=== PATIENT | female | born 1980 | race Caucasian/White ===

== ENCOUNTER → 2017-02-03 | Day surgery (SDC) | payer BC ==
[~2017-02-03] MED LIST: DIPHENHYDRAMINE 50 MG/ML VIAL. IV ONE; DIPHENHYDRAMINE 50 MG/ML VIAL. ONE; FENTANYL PF 100 MCG/2 ML VIAL. IV PRN; IV RINGERS,LACTATED 1000ML 1,000 ML IV ONE; IV RINGERS,LACTATED 1000ML 1,000 ML IV SCH; LIDOCAINE 1% 1 ML SYRINGE. ID PRN; MEPERIDINE PF 25 MG/ML VIAL. IV ONE; MEPERIDINE PF 25 MG/ML VIAL. ONE; MIDAZOLAM HCL/PF 5 MG/5 ML VIAL. IV ONE; MIDAZOLAM HCL/PF 5 MG/5 ML VIAL. ONE; ONDANSETRON PF 4 MG/2 ML VIAL. IV PRN; PROCHLORPERAZINE 10 MG/2 ML VIAL. IV PRN
[2017-02-03 15:38] LABS: NEG OBC UR NEG; POS OBC UR POS
[2017-02-03 17:06] VITALS: BP 128/66
--- NOTE | 2017-02-05 10:41 | PATHOLOGY ---
PATHOLOGY REPORT * * * * * * * * FINAL DIAGNOSIS: A. Small bowel, duodenum, biopsy: - Duodenal mucosa with mild to moderate chronic inflammation. - Normal villous architecture. B. Colon, random biopsies: - Colonic mucosa with mild to moderate chronic inflammation and focal mild hyperplastic changes. - No evidence of acute or chronic colitis. (SKM:julissa; d/t: 02/05/2017) REPORT ELECTRONICALLY SIGNED BY: Mio Oshea M.D. DATE/TIME: 02/05/2017 10:40 * * * * * * * * GROSS PATHOLOGY: A. Received in formalin labeled "Aspen Smith, duodenal biopsy," are nine segments of castano soft tissue measuring 1.1 x 1.0 x 0.3 cm in aggregate dimensions and ranging from 0.2 to 0.5 cm in maximum dimension. The specimen is submitted entirely in cassette A1. B. Received in formalin labeled "Aspen Smith, random colon," are multiple (greater than 10) segments of castano soft tissue measuring 1.7 x 1.1 x 0.1 cm in aggregate dimensions and ranging from 0.2 to 1.0 cm in maximum dimension. The specimen is submitted entirely in cassette B1. ([facility]AA; 02/04/2017) INITIAL CPT CODE(S): A; 62177 B; 36042 Professional services performed [place] [facility] [address] Technical services performed by [facility] at [address] [place] [address] [address] [address]. SPECIMEN(S) RECEIVED: A.Duodenal biopsy B.Random colon CLINICAL HISTORY: Abdominal pain PATIENT: ASPEN SMITH /AGE: 401/27/1980 (Age: 37) PATIENT #: [id number] ALT CASE #: SPECIMEN COLLECTION DATE: 02/03/2017 SPECIMEN RECEIVED DATE: 02/04/2017 [facility] - [address] [place] [address] - PHONE: [phone] * * * END OF REPORT * * *
== END | disposition home or self-care (01) ==
LOC: ENDOS 14:58
PROVIDERS: ATTEND Internal Medicine Gastroenterology
DX: K64.0 First degree hemorrhoids (principal); K52.9 Noninfective gastroenteritis and colitis, unspecified; K31.9 Disease of stomach and duodenum, unspecified; K21.9 Gastro-esophageal reflux disease without esophagitis; J45.909 Unspecified asthma, uncomplicated; I10 Essential (primary) hypertension; E11.9 Type 2 diabetes mellitus without complications
CPT/HCPCS: 43239; 45380; 81025; J1200; J2175; J2250

== ENCOUNTER 2018-03-18 09:01 | Day surgery (SDC) | payer BC ==
[~2018-03-18 09:01] MED LIST changes: +DEXAMETHASONE SOD PHOS 20 MG/5 ML VIAL.; -DIPHENHYDRAMINE 50 MG/ML VIAL. IV ONE; -DIPHENHYDRAMINE 50 MG/ML VIAL. ONE; -FENTANYL PF 100 MCG/2 ML VIAL. IV PRN; -IV RINGERS,LACTATED 1000ML 1,000 ML IV ONE; -IV RINGERS,LACTATED 1000ML 1,000 ML IV SCH; -LIDOCAINE 1% 1 ML SYRINGE. ID PRN; +LIDOCAINE 1% PF 2 ML VIAL. ID; -MEPERIDINE PF 25 MG/ML VIAL. IV ONE; -MEPERIDINE PF 25 MG/ML VIAL. ONE; +MIDAZOLAM HCL/PF 2 MG/2 ML VIAL.; -MIDAZOLAM HCL/PF 5 MG/5 ML VIAL. IV ONE; -MIDAZOLAM HCL/PF 5 MG/5 ML VIAL. ONE; -ONDANSETRON PF 4 MG/2 ML VIAL. IV PRN; -PROCHLORPERAZINE 10 MG/2 ML VIAL. IV PRN; +PROPOFOL 20 ML IV; +fentaNYL PF VIAL 100 MCG/2 ML VIAL; +fentaNYL PF VIAL 100 MCG/2 ML VIAL IV
[2018-03-18] MEDS: IV RINGERS,LACTATED 1000ML 1,000 ML IV (09:54)
[2018-03-18] MEDS ORDERED: ceFAZolin 2GM PREMIX 2 GM/50 ML BAG IV (10:00)
[2018-03-18 10:17] LABS: NEG OBC UR NEG; POS OBC UR POS; U PREG PATIENT NEGATIVE (NEG)
[2018-03-18] MEDS ORDERED: ONDANSETRON PF 4 MG/2 ML VIAL. (10:33)
[2018-03-18] MEDS: BUPIVACAINE-EPI 0.25%-1:200000 50 ML VIAL. (10:47)
[2018-03-18] MEDS: BACITRACIN TOPICAL OINT 14GM TUBE. TP (10:47)
[2018-03-18] MEDS: fentaNYL PF VIAL 100 MCG/2 ML VIAL IV ×2 (11:13→13:13)
[2018-03-18] MEDS ORDERED: oxyCODONE/APAP 5/325 1 TAB TABLET PO (11:30)
[2018-03-18] MEDS: ONDANSETRON PF 4 MG/2 ML VIAL. IV (12:11)
[2018-03-18] MEDS ORDERED: ONDANSETRON PF 4 MG/2 ML VIAL. IV (12:15)
[2018-03-18] MEDS: SCOPOLAMINE 1.5MG PATCH. TD (12:26)
[2018-03-18] MEDS: diphenhydrAMINE 50 MG/ML VIAL IV (13:13)
[2018-03-18] MEDS ORDERED: HALOPERIDOL LACTATE 5 MG/ML VIAL. IVP (13:15)
[2018-03-18] MEDS: oxyCODONE/APAP 5/325 1 TAB TABLET PO (13:58)
== END 2018-03-18 14:38 | disposition home or self-care (01) ==
LOC: SURG 09:01
DX: K64.4 Residual hemorrhoidal skin tags (principal); K64.8 Other hemorrhoids; I10 Essential (primary) hypertension; K21.9 Gastro-esophageal reflux disease without esophagitis; F17.210 Nicotine dependence, cigarettes, uncomplicated; E11.9 Type 2 diabetes mellitus without complications; J45.909 Unspecified asthma, uncomplicated; Z90.49 Acquired absence of other specified parts of digestive tract; Z98.51 Tubal ligation status; Z87.39 Personal history of other diseases of the musculoskeletal system and connective tissue
CPT/HCPCS: 46260; 81025; J0690; J1100; J1200; J1630; J2250; J2405; J2704; J3010

== ENCOUNTER → 2018-04-15 | Outpatient (CLI) | payer BC | END | disposition home or self-care (01) | LOC: KCIC MRI 08:29 | DX: M22.41 Chondromalacia patellae, right knee (principal); M25.461 Effusion, right knee; R60.0 Localized edema | CPT/HCPCS: 73721 ==

== ENCOUNTER 2018-05-19 07:24 | Day surgery (SDC) | payer BC ==
[~2018-05-19 07:24] MED LIST changes: -DEXAMETHASONE SOD PHOS 20 MG/5 ML VIAL.; -LIDOCAINE 1% PF 2 ML VIAL. ID; -MIDAZOLAM HCL/PF 2 MG/2 ML VIAL.; -PROPOFOL 20 ML IV; -fentaNYL PF VIAL 100 MCG/2 ML VIAL
[2018-05-19] MEDS ORDERED: LIDOCAINE 2% PF Vial for OR 5 ML VIAL. (07:37)
[2018-05-19] MEDS ORDERED: fentaNYL PF VIAL 100 MCG/2 ML VIAL ×3 (07:37→10:50)
[2018-05-19] MEDS ORDERED: PROPOFOL 20 ML IV (07:37)
[2018-05-19] MEDS: IV RINGERS,LACTATED 1000ML 1,000 ML IV ×2 (07:54→13:05)
[2018-05-19 07:58] LABS: NEG OBC UR NEG; POS OBC UR POS; U PREG PATIENT NEGATIVE (NEG)
[2018-05-19] MEDS ORDERED: ceFAZolin 2GM PREMIX 2 GM/50 ML BAG IV (08:00)
[2018-05-19] MEDS ORDERED: SCOPOLAMINE 1.5MG PATCH. TD ×2 (08:25→08:30)
[2018-05-19] MEDS ORDERED: SEVOFLURANE 31 TO 60 MINUTES. IH (08:39)
[2018-05-19] MEDS ORDERED: ePHEDrine PF IN SALINE 50 MG/5 ML DISP.SYRIN IV (08:39)
[2018-05-19] MEDS ORDERED: DEXAMETHASONE SOD PHOS 20 MG/5 ML VIAL. (08:39)
[2018-05-19] MEDS ORDERED: FAMOTIDINE 20 MG/2 ML VIAL (08:42)
[2018-05-19] MEDS ORDERED: diphenhydrAMINE 50 MG/ML VIAL (08:42)
[2018-05-19] MEDS ORDERED: ONDANSETRON PF 4 MG/2 ML VIAL. (09:42)
[2018-05-19] MEDS: fentaNYL PF VIAL 100 MCG/2 ML VIAL IV ×4 (10:32→11:20)
[2018-05-19] MEDS: LIDOCAINE 1% PF 2 ML VIAL. ID (11:34)
[2018-05-19] MEDS: ONDANSETRON PF 4 MG/2 ML VIAL. IV (11:38)
[2018-05-19] MEDS: TRIMETHOBENZAMIDE IM 200 MG/2 ML VIAL. IM (12:41)
[2018-05-19] MEDS ORDERED: MORPHINE SULFATE 2 MG/ML DISP.SYRIN. (12:41)
[2018-05-19] MEDS: MORPHINE SULFATE 2 MG/ML DISP.SYRIN. IV ×2 (12:46→13:10)
[2018-05-19] MEDS: BUPIVACAINE 0.5% 50 ML VIAL. (13:30)
[2018-05-19] MEDS: LIDOCAINE 1% PF 30 ML VIAL. (13:31)
[2018-05-19] MEDS: EPINEPHrine VIAL 30 MG/30 ML VIAL (13:32)
[2018-05-19] MEDS: oxyCODONE/APAP 5/325 1 TAB TABLET PO (13:48)
[2018-05-19] MEDS: MECLIZINE HCL 12.5 MG TABLET. PO (14:39)
== END 2018-05-19 15:05 | disposition home or self-care (01) ==
LOC: SURG 07:24
DX: S83.094D Other dislocation of right patella, subsequent encounter (principal); I10 Essential (primary) hypertension; E28.2 Polycystic ovarian syndrome; K21.9 Gastro-esophageal reflux disease without esophagitis; K58.9 Irritable bowel syndrome, unspecified; Z90.49 Acquired absence of other specified parts of digestive tract; Z98.890 Other specified postprocedural states; Z98.51 Tubal ligation status; Z82.49 Family history of ischemic heart disease and other diseases of the circulatory system; Z82.5 Family history of asthma and other chronic lower respiratory diseases; Z83.3 Family history of diabetes mellitus; Z79.899 Other long term (current) drug therapy; Z88.5 Allergy status to narcotic agent; Z88.8 Allergy status to other drugs, medicaments and biological substances; J45.909 Unspecified asthma, uncomplicated; M19.90 Unspecified osteoarthritis, unspecified site; Z72.89 Other problems related to lifestyle; Z87.891 Personal history of nicotine dependence; X58.XXXD Exposure to other specified factors, subsequent encounter
CPT/HCPCS: 27422; 76000; 81025; 97161-GP; A7015; C1713; C1763; C1876; J0171; J0690; J1100; J1200; J2001; J2270; J2405; J2704; J3010; J3250; J3490; J7120; J8597; S0028